=== PATIENT | male | born 1935 | race Caucasian/White ===

== ENCOUNTER 2025-01-20 12:06 | Emergency (ER) | payer MEDICARE, OTHER ==
[~2025-01-20] VITALS: Ht 160 cm; Wt 58.2 kg
[~2025-01-20 12:06] MED LIST: ATOR40TA71 PO; CARV6.2534 PO; CHOL2000 PO; DABI150C2 PO; FENO145T PO; LISI20TA24 PO; OMEG1CAP31 PO; RANO500T27 PO; TORS20TA PO; [UNRECOGNIZED DRUG - CODE] PO
[2025-01-20 12:25] VITALS: BP 115/72; PULSE 65; RESP 12; TEMP 97.7; O2SAT 97
[2025-01-20] MEDS: LIDOCAINE 2% 6 ML JELLY TP ONE (13:25)
[2025-01-20 13:36] LABS: APPEARANCE,URINE HAZY (CLEAR); GLUCOSE, URINE (UA) NEGATIVE (NEGATIVE); LEUKOCYTE ESTERASE ,URINE LARGE (NEGATIVE); NITRATE,URINE NEGATIVE (NEGATIVE); OCCULT BLOOD,URINE MODERATE (NEGATIVE); SPECIFIC GRAVITIY, URINE 1.011 (1.003-1.030)
== END 2025-01-20 14:13 | disposition home or self-care (01) ==
LOC: EMS 12:08
DX: Z46.6 Encounter for fitting and adjustment of urinary device (principal); E11.22 Type 2 diabetes mellitus with diabetic chronic kidney disease; I13.0 Hypertensive heart and chronic kidney disease with heart failure and stage 1 through stage 4 chronic kidney disease, or unspecified chronic kidney disease; I50.9 Heart failure, unspecified; N18.30 Chronic kidney disease, stage 3 unspecified; E78.00 Pure hypercholesterolemia, unspecified; I48.91 Unspecified atrial fibrillation; Z95.0 Presence of cardiac pacemaker; Z85.46 Personal history of malignant neoplasm of prostate; Z88.0 Allergy status to penicillin; Z79.01 Long term (current) use of anticoagulants; Z79.899 Other long term (current) drug therapy
CPT/HCPCS: 51702; 81001; 87086; 99284; Z7502